=== PATIENT | female | born 1985 | race Caucasian/White ===

== ENCOUNTER 2023-10-11 10:55 | Inpatient (IN) | payer OTHER ==
[2023-10-11] MEDS ORDERED: LOPERAMIDE HCL 2 MG CAPSULE PO PRN (14:02)
[2023-10-11] MEDS ORDERED: MAG HYDROX/AL HYDROX/SIMETH 30 ML UNIT-DOSE CUP PO PRN (14:02)
[2023-10-11] MEDS ORDERED: NALOXONE HCL 0.4 MG/ML VIAL IM PRN (14:02)
[2023-10-11] MEDS ORDERED: BENZONATATE 200 MG CAPSULE PO PRN (14:02)
[2023-10-11] MEDS ORDERED: BENZOCAINE/MENTHOL (CHLORASEPTIC ) LOZENGE MM PRN (14:02)
[2023-10-11] MEDS ORDERED: NALOXONE (NARCAN) HCL 4 MG/0.1 ML SPRAY NS PRN (14:02)
[2023-10-11 15:19] VITALS: BMI 18.0
[2023-10-11 16:52] LABS: PH,URINE 6.5 (5.0-8.0); URINE APPEARANCE CLOUDY; URINE BILIRUBIN NEGATIVE (NEGATIVE); URINE COLOR YELLOW; URINE GLUCOSE (UA) NEGATIVE (NEGATIVE); URINE KETONE NEGATIVE (NEGATIVE); URINE LEUK ESTERASE NEGATIVE (NEGATIVE); URINE NITRITE NEGATIVE (NEGATIVE); URINE PROTEIN NEGATIVE (NEGATIVE); URINE UROBILINOGEN 0.2 mg/dL (0.2-1.0)
[2023-10-11] MEDS: hydrOXYzine PAMOATE 25 MG CAPSULE (FP) PO PRN (17:28)
[2023-10-11] MEDS: IBUPROFEN 600 MG TABLET (FP) PO PRN (17:28)
[2023-10-11] MEDS: METHOCARBAMOL 500 MG TABLET PO PRN (20:49)
[2023-10-11] MEDS: NICOTINE POLACRILEX 2 MG GUM BUC PRN (20:50)
[2023-10-11] MEDS: THIAMINE 100 MG TABLET PO SCH (22:31)
[2023-10-11] MEDS: MELATONIN 5 MG TABLETS PO SCH (22:31)
[2023-10-11] MEDS: ACETAMINOPHEN 325 MG TABLET (FP) PO PRN (22:31)
[2023-10-12] MEDS: methaDONE HCL 40 MG DISPERSABLE TABLET PO ONE (05:38)
[2023-10-12] MEDS: NICOTINE 14 MG/24 HOURS TOPICAL PATCH TD SCH (09:31)
[2023-10-12] MEDS: PRENATAL VITAMINS W/ FOLIC ACID TABLET (FP) PO SCH (09:31)
[2023-10-12] MEDS: PNEUMOC 20-VAL CONJ-DIP CRM/PF 0.5 ML SYRINGE IM ONE (12:28)
[2023-10-12] MEDS: ARIPiprazole 2 MG TABLET PO SCH (15:29)
[2023-10-12 15:56] LABS: CHLORIDE 94 mmol/L (98-107); SODIUM 136 mmol/L (136-145)
[2023-10-12 16:00] LABS: CALCIUM 10.3 mg/dL (8.5-10.1); HEMATOCRIT 43.4 % (32.4-45.2); HEMOGLOBIN 14.5 GM/dL (10.7-15.3); MCH 26.6 pg (25.7-33.7); MCHC 33.4 g/dl (32.0-36.0); MEAN CELL VOLUME 79.7 fl (80-96); MEAN PLT VOLUME 9.7 fl (7.5-11.1); PLATELET COUNT 279 10^3/uL (134-434); RBC 5.45 M/mm3 (3.60-5.2); RDW 15.1 % (11.6-15.6); WHITE BLOOD COUNT 6.6 K/mm3 (4.0-10.0)
[2023-10-12 16:01] LABS: BLOOD UREA NITROGEN 14.6 mg/dL (7-18); CO2 32 mmol/L (21-32); GLUCOSE,RANDOM 144 mg/dL (74-106)
[2023-10-12 16:04] LABS: CREATININE 0.7 mg/dL (0.55-1.3); SGOT/AST 23 U/L (15-37); SGPT/ALT 21 U/L (13-61)
[2023-10-12 16:05] LABS: BILIRUBIN,TOTAL 0.6 mg/dL (0.2-1); TOT PROT 8.4 g/dl (6.4-8.2)
[2023-10-12 16:07] LABS: ALK PHOS 65 U/L (45-117); ANION GAP 10 mmol/L (4-13); POTASSIUM 2.8 mmol/L (3.5-5.1)
[2023-10-12 16:53] LABS: HIV INTERPRETATION NEGATIVE (NEGATIVE)
[2023-10-12] MEDS: POTASSIUM CHLORIDE ORAL LIQUID 20 MEQ/15 ML PO ONE ×2 (16:57→21:13)
[2023-10-12] MEDS: diazePAM 5 MG TABLET PO ONE (17:25)
[2023-10-12] MEDS: hydrOXYzine PAMOATE 50 MG CAPSULE (FP) PO PRN (21:11)
[2023-10-12] MEDS: GABAPENTIN 100 MG CAPSULE PO SCH (21:11)
[2023-10-12] MEDS: guaiFENesin 600 MG TABLET.ER (FP) PO PRN (23:08)
[2023-10-13] MEDS: methaDONE 40 MG, methaDONE 10 MG PO SCH (05:26)
[2023-10-13] MEDS ORDERED: methaDONE HCL 40 MG DISPERSABLE TABLET PO SCH (06:00)
[2023-10-13 11:41] LABS: POTASSIUM 3.7 mmol/L (3.5-5.1)
[2023-10-13 12:06] LABS: BLOOD UREA NITROGEN 18.2 mg/dL (7-18)
[2023-10-13 12:09] LABS: CREATININE 0.8 mg/dL (0.55-1.3)
[2023-10-13] MEDS: IBUPROFEN 400 MG TABLET (FP) PO PRN (17:32)
[2023-10-13] MEDS: SUVOREXANT 5 MG TABLET PO PRN (21:04)
[2023-10-13] MEDS: GABAPENTIN 100 MG CAPSULE PO SCH (21:05)
[2023-10-14] MEDS: METHOCARBAMOL 750 MG TABLET PO PRN (14:27)
[2023-10-15] MEDS ORDERED: methaDONE HCL 40 MG DISPERSABLE TABLET PO SCH (06:00)
[2023-10-15] MEDS: methaDONE 40 MG, methaDONE 20 MG PO SCH (06:12)
[2023-10-16] MEDS: SUVOREXANT 5 MG TABLET PO PRN (21:07)
[2023-10-17] MEDS: methaDONE 40 MG, methaDONE 30 MG PO SCH (06:02)
[2023-10-19] MEDS: methaDONE HCL 40 MG DISPERSABLE TABLET PO ONE (06:08)
[2023-10-19] MEDS: NICOTINE POLACRILEX 4 MG GUM BUC PRN (17:52)
[2023-10-20] MEDS: methaDONE HCL 40 MG DISPERSABLE TABLET PO SCH (06:01)
[2023-10-20] MEDS: SUVOREXANT 10 MG TABLET PO PRN (21:14)
[2023-10-23] MEDS: SUVOREXANT 10 MG TABLET PO PRN (21:04)
[2023-10-25] MEDS: MAGNESIUM HYDROX 2400MG/30ML ORAL SUSPENSION 30 ML CUP PO PRN (14:46)
[2023-10-26] MEDS: SUVOREXANT 10 MG TABLET PO PRN (21:43)
[2023-10-27] MEDS: POLYETHYLENE GLYCOL (HEALTHYLAX) 3350 17 GM PACKET PO PRN (22:42)
[2023-10-28] MEDS ORDERED: DOCUSATE SODIUM 100 MG CAPSULE (FP) PO PRN (15:47)
[2023-10-28] MEDS ORDERED: BISACODYL 5 MG TABLET.DR (FP) PO PRN (15:47)
[2023-10-28] MEDS: LACTULOSE 20 GM/30 ML UDC (FOR ORAL USE ONLY) PO SCH (21:16)
[2023-10-29] MEDS: SUVOREXANT 10 MG TABLET PO PRN (21:10)
[2023-10-31] MEDS ORDERED: LACTULOSE 20 GM/30 ML UDC (FOR ORAL USE ONLY) PO PRN (14:55)
[2023-10-31] MEDS: SUVOREXANT 10 MG TABLET PO PRN (21:04)
[2023-11-01] MEDS: methaDONE HCL 40 MG DISPERSABLE TABLET PO SCH (06:04)
[2023-11-02 07:00] VITALS: BP 116/71; PULSE 89; RESP 18; TEMP 97.4
== END 2023-11-02 10:45 | disposition home or self-care (01) | DRG 772 ==
LOC: YASAS 10:55 → Y3NR 14:41 → Y5N 10-13 11:46
PROVIDERS: ADMIT Allergy & Immunology; ATTEND Psychiatry & Neurology Pain Medicine
PROC: HZ42ZZZ Group Counseling for Substance Abuse Treatment, Cognitive-Behavioral (ICD-10-PCS; principal; 2023-10-11)
DX: F10.20 Alcohol dependence, uncomplicated (principal); F11.20 Opioid dependence, uncomplicated; F14.20 Cocaine dependence, uncomplicated; F12.20 Cannabis dependence, uncomplicated; F17.210 Nicotine dependence, cigarettes, uncomplicated; F31.9 Bipolar disorder, unspecified; F41.9 Anxiety disorder, unspecified; E87.6 Hypokalemia; G47.00 Insomnia, unspecified
CPT/HCPCS: 36415; 80048; 80053; 80305; 80307; 81003; 85027; 86780; 86803; 87389; 87811; 90677; 93005; 93010; G0009